=== PATIENT | female | born 1930 | race Caucasian/White ===

== ENCOUNTER 2016-12-11 09:24 | Emergency (ER) | payer MEDICARE, OTHER ==
[2016-12-11] MEDS ORDERED: ASPIRIN 81 MG TABLET, CHEWABLE PO ONE (09:46)
[2016-12-11 10:13] LABS: ABSOLUTE LYMPHOCYTES (AUTO) 0.7 10^3/uL (0.5-4.7); ABSOLUTE MONOCYTES (AUTO) 0.7 10^3/uL (0.1-1.4); ABSOLUTE NEUT (AUTO) 5.7 10^3/uL (1.7-8.2); BASOPHILS % (AUTO) 0.7 % (0-2); EOSINOPHILS % (AUTO) 0.5 % (0-6); HEMATOCRIT 29.9 % (36.0-47.0); HEMOGLOBIN 9.9 g/dL (12.0-15.5); HGB HCT DIFFERENCE -0.2; LYMPHOCYTES % (AUTO) 10.1 % (13-45); MEAN CORPUSCULAR HEMOGLOBIN 33.9 pg (27.0-33.4); MEAN CORPUSCULAR VOLUME 103 fl (80-97); MONOCYTES % (AUTO) 9.7 % (3-13); RED BLOOD COUNT 2.91 10^6/uL (3.72-5.28); RED CELL DISTRIBUTION WIDTH 13.5 % (11.5-14.0); WHITE BLOOD COUNT 7.2 10^3/uL (4.0-10.5)
[2016-12-11 10:30] LABS: ALANINE AMINOTRANSFERASE 119 U/L (9-52); ALBUMIN 3.3 g/dL (3.5-5.0); ALKALINE PHOSPHATASE 97 U/L (38-126); ANION GAP 8 (5-19); ASPARTATE AMINO TRANSFERASE 91 U/L (14-36); BILIRUBIN,DIRECT 0.1 mg/dL (0.0-0.4); BILIRUBIN,TOTAL 0.6 mg/dL (0.2-1.3); BLOOD UREA NITROGEN 32 mg/dL (7-20); CALCIUM 8.2 mg/dL (8.4-10.2); CARBON DIOXIDE 31 mmol/L (22-30); CHLORIDE 103 mmol/L (98-107); CREATINE KINASE 28 U/L (30-135); CREATININE RESULT 0.96 mg/dL (0.52-1.25); GLUCOSE 142 mg/dL (75-110); POTASSIUM 4.5 mmol/L (3.6-5.0); SODIUM 142.2 mmol/L (137-145); TOTAL PROTEIN 6.1 g/dL (6.3-8.2)
[2016-12-11 10:42] LABS: TROPONIN I < 0.012 ng/mL
--- NOTE | 2016-12-11 12:17 | ER Document Report ---
ED General - General Chief Complaint: Chest Pain > 30 Stated Complaint: CHEST PAIN Mode of Arrival: Medic Information source: Patient Notes: 86-year-old female history of pacemaker presents with complaints of left-sided pain chest wall with movement. Patient notes that she thought her pacemaker had moved. Patient denies any shortness of breath radiation of pain neck pain control pain or diaphoresis patient notes pain started last night only occurs with movement - HPI Onset: Yesterday Onset/Duration: Sudden Quality of pain: Achy Severity: Mild Pain Level: 1 Associated symptoms: Body/muscle aches Exacerbated by: Movement Relieved by: Denies Similar symptoms previously: No Recently seen / treated by doctor: No - Related Data Allergies/Adverse Reactions: lactose Adverse Reaction (Verified 12/11/16 10:19) Past Medical History - Social History Smoking Status: Never Smoker Cigarette use (# per day): No Chew tobacco use (# tins/day): No Smoking Education Provided: No Family History: Reviewed & Not Pertinent - Past Medical History Cardiac Medical History: Reports: Hx Hypertension Pulmonary Medical History: Reports: Hx COPD Endocrine Medical History: Reports: Hx Diabetes Mellitus Type 2 GI Medical History: Reports: Hx Gastroesophageal Reflux Disease Past Surgical History: Reports: Hx Cardiac Surgery - pacemaker Review of Systems - Review of Systems Notes: REVIEW OF SYSTEMS: CONSTITUTIONAL : Denies fever, chills, or sweats. Denies recent illness. EENT: Denies eye, ear, throat, or mouth pain or symptoms. Denies nasal or sinus congestion or discharge. Denies throat, tongue, or mouth swelling or difficulty swallowing. CARDIOVASCULAR: Admits to chest wall pain RESPIRATORY: Denies cough, cold, or chest congestion. Denies shortness of breath, difficulty breathing, or wheezing. GASTROINTESTINAL: Denies abdominal pain or distention. Denies nausea, vomiting , or diarrhea. Denies blood in vomitus, stools, or per rectum. Denies black, tarry stools. Denies constipation. GENITOURINARY: Denies difficulty urinating, painful urination, burning, frequency, blood in urine, or discharge. FEMALE GENITOURINARY: Denies vaginal bleeding, heavy or abnormal periods, irregular periods. Denies vaginal discharge or odor. MUSCULOSKELETAL: Denies back or neck pain or stiffness. Denies joint pain or swelling. SKIN: Denies rash, lesions or sores. HEMATOLOGIC : Denies easy bruising or bleeding. LYMPHATIC: Denies swollen, enlarged glands. NEUROLOGICAL: Denies confusion or altered mental status. Denies passing out or loss of consciousness. Denies dizziness or lightheadedness. Denies headache. Denies weakness or paralysis or loss of use of either side. Denies problems with gait or speech. Denies sensory loss, numbness, or tingling. Denies seizures. PSYCHIATRIC: Denies anxiety or stress. Denies depression, suicidal ideation, or homicidal ideation. ALL OTHER SYSTEMS REVIEWED AND NEGATIVE. Dictation was performed using [employer] voice recognition software PHYSICAL EXAMINATION: GENERAL: Well-appearing, well-nourished and in no acute distress. HEAD: Atraumatic, normocephalic. EYES: Pupils equal round and reactive to light, extraocular movements intact, conjunctiva are normal. ENT: Nares patent, oropharynx clear without exudates. Moist mucous membranes. NECK: Normal range of motion, supple without lymphadenopathy LUNGS: Breath sounds clear to auscultation bilaterally and equal. No wheezes rales or rhonchi. HEART: Regular rate and rhythm without murmurs ABDOMEN: Soft, nontender, nondistended abdomen. No guarding, no rebound. No masses appreciated. Female : deferred Musculoskeletal: Normal range of motion, no pitting or edema. No cyanosis. Admits to left chest wall tenderness on palpation of pacer NEUROLOGICAL: Cranial nerves grossly intact. Normal speech, normal gait. Normal sensory, motor exams PSYCH: Normal mood, normal affect. SKIN: Warm, Dry, normal turgor, no rashes or lesions noted. Physical Exam - Vital signs Vitals: Resp Pulse Ox 22 H 98 12/11/16 09:48 12/11/16 09:48 Course - Re-evaluation Re-evalutation: 12/11/16 12:16 Physical examination reproduces the patient's pain, lab work imaging note no significant abnormality otherwise. I have very low suspicion for cardiac event , however since she is elderly I did perform cardiac enzymes. I would expect his enzymes to be elevated since pain started yesterday and has been over 16 hours at this point Patient instructed to follow-up with her patch finisher tomorrow After performing a Medical Screening Examination, I estimate there is LOW risk for RUPTURED ESOPHAGUS, PNEUMOTHORAX, PULMONARY EMBOLISM, ACUTE CORONARY SYNDROME, OR THORACIC AORTIC DISSECTION, thus I consider the discharge disposition reasonable. The patient and I have discussed the diagnosis and risks , and we agree with discharging home with close follow-up. We also discussed returning to the Emergency Department immediately if new or worsening symptoms occur. We have discussed the symptoms which are most concerning (e.g., bloody sputum, worsening pain or shortness of breath) that necessitate immediate return. - Vital Signs Vital signs: Temp Pulse Resp BP Pulse Ox 98.0 F 68 11 L 142/50 H 99 12/11/16 09:50 12/11/16 09:50 12/11/16 12:01 12/11/16 12:01 12/11/16 12:01 - Laboratory Result Diagrams: 12/11/16 10:00 12/11/16 10:00 Laboratory results interpreted by me: 12/11/16 12/11/16 10:00 10:00 RBC 2.91 L Hgb 9.9 L Hct 29.9 L MCV 103 H MCH 33.9 H Plt Count 103 L Seg Neutrophils % 79.0 H Lymphocytes % 10.1 L Carbon Dioxide 31 H BUN 32 H Est GFR (Non-Af Amer) 55 L Glucose 142 H Calcium 8.2 L AST 91 H ALT 119 H Creatine Kinase 28 L Total Protein 6.1 L Albumin 3.3 L - Diagnostic Test Radiology reviewed: Image reviewed, Reports reviewed - EKG Interpretation by Me EKG shows normal: Sinus rhythm, [place], Intervals, QRS Complexes Discharge - Discharge Clinical Impression: Chest wall pain Condition: Stable Disposition: HOME, SELF-CARE Instructions: Chest Wall Pain ([facility]) Additional Instructions: Please follow-up with her patch finisher tomorrow for reevaluation or return immediately if any other concerns
[2016-12-11 12:52] VITALS: BP 145/53
--- NOTE | 2016-12-11 13:42 | EKG REPORT ---
SEVERITY:- ABNORMAL ECG - ATRIAL-VENTRICULAR DUAL-PACED COMPLEXES : Confirmed by: Michael Dueñas MD 11-Dec-2016 13:41:32
== END 2016-12-11 12:52 | disposition home or self-care (01) ==
LOC: ER 09:24
DX: R07.89 Other chest pain (principal); Z95.1 Presence of aortocoronary bypass graft; I10 Essential (primary) hypertension; J44.9 Chronic obstructive pulmonary disease, unspecified; E11.9 Type 2 diabetes mellitus without complications
CPT/HCPCS: 36415; 71010; 80053; 82550; 82553; 84484; 85025; 93005; 93010; 99285

== ENCOUNTER → 2017-03-27 | Outpatient (CLI) | payer MEDICARE, OTHER ==
[2017-03-27 08:35] LABS: ALANINE AMINOTRANSFERASE 31 U/L (9-52); ALBUMIN 4.1 g/dL (3.5-5.0); ALKALINE PHOSPHATASE 89 U/L (38-126); ANION GAP 10 (5-19); ASPARTATE AMINO TRANSFERASE 31 U/L (14-36); BILIRUBIN,DIRECT 0.2 mg/dL (0.0-0.4); BILIRUBIN,TOTAL 0.5 mg/dL (0.2-1.3); BLOOD UREA NITROGEN 46 mg/dL (7-20); CALCIUM 9.5 mg/dL (8.4-10.2); CARBON DIOXIDE 31 mmol/L (22-30); CHLORIDE 103 mmol/L (98-107); CREATININE RESULT 1.27 mg/dL (0.52-1.25); GLUCOSE 72 mg/dL (75-110); PHOSPHORUS 5.4 mg/dL (2.5-4.5); POTASSIUM 5.3 mmol/L (3.6-5.0); SODIUM 143.5 mmol/L (137-145); TOTAL PROTEIN 7.2 g/dL (6.3-8.2)
[2017-03-28 07:06] LABS: PTH INTACT 47 pg/mL (15-65)
[2017-03-28 15:14] LABS: VITAMIN D 1,25 DIHYDROXY 27.3 pg/mL (19.9-79.3)
[2017-04-03 07:27] LABS: PTH RELATED PEPTIDE <1.1 pmol/L (.)
== END ==
LOC: OD 07:30
PROVIDERS: ATTEND Internal Medicine Endocrinology, Diabetes & Metabolism
DX: E83.52 Hypercalcemia (principal)
CPT/HCPCS: 36415; 80053; 82397; 82652; 83970; 84100

== ENCOUNTER 2018-01-09 13:48 | Emergency (ER) | payer MEDICARE, OTHER ==
--- NOTE | 2018-01-09 14:35 | ER Document Report ---
ED General <AZUCENANICOLAS Bhatia - Last Filed: 01/09/18 16:34> - General Mode of Arrival: Ambulatory Information source: Patient TRAVEL OUTSIDE OF THE [place] IN LAST 30 DAYS: No <KRYSTYNA LIMON - Last Filed: 01/09/18 16:38> - General Chief Complaint: Anxiety Stated Complaint: DIFFICULTY BREATHING Time Seen by Provider: 01/09/18 14:22 Notes: 87 y.o female with a PMHx of Alzheimer's, one stent, 4 vessel bypass surgery, HTN and pacemaker placement presents to the ED with trouble breathing of onset a few nights ago. She reports that she has trouble breathing from time to time and at baseline she uses nebulizers and breathing treatments as well as oxygen during the night. Pt reports that recently she has been using her oxygen during the day as well and has felt some relief. Family confirmed the oxygen was started a while back most likely due to anxiety and has been using it more the past few days with some relief. Son at bedside states that she might be having issues with allergies. He reports that she had a CXR 2 weeks ago and started taking Lasix. PCP at the [facility] in [place], [place]. (KRYSTYNA LIMON) - Related Data Allergies/Adverse Reactions: lactose Adverse Reaction (Verified 12/11/16 10:19) Past Medical History - General Information source: Patient, Relative - Son at bedside - Social History Smoking Status: Unknown if Ever Smoked Cigarette use (# per day): No Chew tobacco use (# tins/day): No Smoking Education Provided: No Frequency of alcohol use: None Drug Abuse: None Family History: Reviewed & Not Pertinent - Past Medical History Cardiac Medical History: Reports: Hx Coronary Artery Disease - 4 vessel bypass surgery, Hx Hypertension, Other - pacemaker in place Pulmonary Medical History: Reports: Hx COPD Endocrine Medical History: Reports: Hx Diabetes Mellitus Type 2 GI Medical History: Reports: Hx Gastroesophageal Reflux Disease Past Surgical History: Reports: Hx Cardiac Surgery - pacemaker <KRYSTYNA LIMON - Last Filed: 01/09/18 16:38> Review of Systems - Review of Systems Constitutional: No symptoms reported EENT: No symptoms reported Cardiovascular: No symptoms reported Respiratory: See HPI, Short of breath - trouble breathing Gastrointestinal: No symptoms reported Genitourinary: No symptoms reported Female Genitourinary: No symptoms reported Musculoskeletal: No symptoms reported Skin: No symptoms reported Hematologic/Lymphatic: No symptoms reported Neurological/Psychological: No symptoms reported -: Yes All other systems reviewed and negative <KRYSTYNA LIMON - Last Filed: 01/09/18 16:38> Physical Exam <NICOLAS ZENG - Last Filed: 01/09/18 16:34> <KRYSTYNA LIMON - Last Filed: 01/09/18 16:38> - Vital signs Vitals: Temp Pulse Resp BP Pulse Ox 97.9 F 62 18 146/56 H 96 01/09/18 13:51 01/09/18 13:51 01/09/18 13:51 01/09/18 13:51 01/09/18 13:51 - Notes Notes: General: Alert, appears well and reasonably oriented. Pt was sleeping when entering the room. Diagnosed with Alzheimer's but seems to be very mild. HEENT: Normocephalic. Atraumatic. PERRL. Extraocular movements intact. Oropharynx clear. Neck: Supple. Non-tender. Respiratory: No respiratory distress. Clear and equal breath sounds bilaterally. Pt does not appear to be SOB. Pulse Ox on room air was at 99% when we entered the room and she was sleeping, after talking with patient the pulse ox read at 96%. Cardiovascular: Regular rate and rhythm. Abdominal: Normal Inspection. Non-tender. No distension. Normal Bowel Sounds. Back: Non-tender. No deformity or step off. Extremities: Moves all four extremities. Upper extremities: Normal inspection. Normal ROM. Lower extremities: LLE surgical scar from bypass surgery. RLE normal inspection. No edema. Normal ROM. Neurological: Normal cognition. AAOx4. Normal speech. Psychological: Normal affect. Normal Mood. Skin: Warm. Dry. Surgical scar to LLE, medially from ankle to groin where veins were removed for 4 vessel bypass. (KRYSTYNA LIMON) Course - Laboratory Result Diagrams: 01/09/18 15:15 01/09/18 15:15 - Diagnostic Test Radiology reviewed: Image reviewed, Reports reviewed - Chest x-ray shows stable chronic changes including a left diaphragm elevation and heart borders at upper limits of normal. This chest x-ray is compared to the one done on 12/22/2017 and [place], and it is unchanged. - EKG Interpretation by Me Rate: Normal - 60 Rhythm: Other - AV dual paced rhythm When compared to previous EKG there are: Previous EKG unavailable <NICOLAS ZENG - Last Filed: 01/09/18 16:34> - Laboratory Result Diagrams: 01/09/18 15:15 01/09/18 15:15 <KRYSTYNA LIMON - Last Filed: 01/09/18 16:38> - Re-evaluation Re-evalutation: 01/09/18 16:24 The patient's BNP is 801, there are no previous BNPs for comparison on her other lab testing. At this time her pulse ox is 96% on room air. She is not tachypneic. Chest x-ray does not show any acute process specifically no pulmonary edema or congestive heart failure. The son reports that the patient does have anxiety medication for as needed basis but apparently has not been receiving that for the symptoms. Her symptoms have been progressing since she entered this rest home. The patient thinks it is due to allergies related to all the spraying that is done around the facility, however she does have some Alzheimer's dementia. The son is agreeable to having them try her anxiety medication when she is feeling shortness of breath see if that helps. (NICOLAS ZENG) 01/09/18 14:52 I had radiologist pull up film of CXR taken on December 22 that did not show any acute abnormalities of CHF or pulmonary edema. Pt was started on 40mg Lasix and potassium supplements. (KRYSTYNA LIMON) - Vital Signs Vital signs: Temp Pulse Resp BP Pulse Ox 97.9 F 62 18 146/56 H 96 01/09/18 13:51 01/09/18 13:51 01/09/18 13:51 01/09/18 13:51 01/09/18 13:51 - Laboratory Laboratory results interpreted by me: 01/09/18 01/09/18 01/09/18 15:15 15:15 15:15 RBC 3.71 L Hgb 11.9 L Plt Count 82 L Potassium 5.9 H Carbon Dioxide 34 H BUN 33 H Est GFR ( Amer) 52 L Est GFR (Non-Af Amer) 43 L Glucose 134 H NT-Pro-B Natriuret Pep 801 H Discharge <NICOLAS ZENG - Last Filed: 04/20/18 16:34> <KRYSTYNA LIMON - Last Filed: 01/09/18 16:38> - Discharge Clinical Impression: Shortness of breath at rest Condition: Stable Disposition: HOME, SELF-CARE Additional Instructions: Dyspnea, Nonspecific You were evaluated for shortness of breath, or dyspnea. Dyspnea has many causes, and some are more serious than others. Sometimes it's impossible to diagnose the cause of dyspnea with the tests that are available on an emergency basis. Based on our evaluation today, you do not need hospitalization now. We found no evidence of pneumonia, collapsed lung, blood clots in the lung, tumors , or heart failure. Causes of non-specific dyspnea can include asthma or bronchospasm, hyperventilation, emotional distress, heart disease, emphysema, fibrosis of the lung, and stiffness of the chest wall. In healthy individuals with a single episode, it's sometimes reasonable to do nothing but wait to see if the problem occurs again. Additional tests used to evaluate dyspnea can include cardiac stress testing, echocardiography, pulmonary function testing, CAT scan of the chest, bronchoscopy or pulmonary biopsy. Return if shortness of breath persists or worsens, or if you develop chest pain, fever, cough, confusion, or fainting. At this time your oxygen saturations are normal. Your chest x-ray does not show any fluid on the lungs or heart enlargement. Your lab work suggest you might be a little dehydrated. For now you should use supplemental oxygen if you feel you need to. Call your doctor to follow-up at the first of the week for reevaluation. Take copies of the lab work and chest x-ray with you when you go to see your doctor. RETURN TO THE EMERGENCY ROOM IF ANY NEW OR WORSENING SYMPTOMS. Referrals: MARY AYALA MD [Primary Care Provider] - Follow up as needed Scribe Attestation: 01/09/18 15:22 I personally performed the services described in the documentation, reviewed and edited the documentation which was dictated to the scribe in my presence, and it accurately records my words and actions. (NICOLAS ZENG) Scribe Documentation - Scribe Written by Randi:: Randi Zee 01/09/2018 1549 acting as scribe for :: Azucena <KRYSTYNA LIMON - Last Filed: 01/09/18 16:38>
[2018-01-09 15:39] LABS: ABSOLUTE EOSINOPHILS # (AUTO) 0.2 10^3/uL (0.0-0.6); ABSOLUTE LYMPHOCYTES (AUTO) 1.5 10^3/uL (0.5-4.7); ABSOLUTE MONOCYTES (AUTO) 0.6 10^3/uL (0.1-1.4); ABSOLUTE NEUT (AUTO) 3.3 10^3/uL (1.7-8.2); BASOPHILS % (AUTO) 0.8 % (0-2); EOSINOPHILS % (AUTO) 2.8 % (0-6); HEMOGLOBIN 11.9 g/dL (12.0-15.5); LYMPHOCYTES % (AUTO) 26.3 % (13-45); MEAN CORPUSCULAR HEMOGLOBIN 32.1 pg (27.0-33.4); MEAN CORPUSCULAR HGB CONC 33.1 g/dL (32.0-36.0); MEAN CORPUSCULAR VOLUME 97 fl (80-97); RED BLOOD COUNT 3.71 10^6/uL (3.72-5.28); RED CELL DISTRIBUTION WIDTH 12.9 % (11.5-14.0); SEGMENTED NEUTROPHILS % (AUTO) 59.1 % (42-78); TOTAL CELLS COUNTED % (AUTO) 100 %; WHITE BLOOD COUNT 5.6 10^3/uL (4.0-10.5)
--- NOTE | 2018-01-09 15:44 | RADIOLOGY REPORT (SQ) ---
EXAM DESCRIPTION: CHEST SINGLE VIEW COMPLETED DATE/TIME: 01/09/2018 3:32 pm REASON FOR STUDY: SOB COMPARISON: Chest x-ray from [facility] dated 12/22/2017. Prior chest x-ray from [facility] dated 12/11/2016. EXAM PARAMETERS: NUMBER OF VIEWS: One view. TECHNIQUE: Single frontal radiographic view of the chest acquired. RADIATION DOSE: NA LIMITATIONS: None. FINDINGS: LUNGS AND PLEURA: Chronic elevation of the left hemidiaphragm. A few calcified granuloma. No opacities, masses or pneumothorax. No pleural effusion. MEDIASTINUM AND HILAR STRUCTURES: No masses. Contour normal. HEART AND VASCULAR STRUCTURES: Heart upper limits of normal in size. Normal vasculature. BONES: No acute findings. HARDWARE: Sternotomy wires and pacemaker. OTHER: No other significant finding. IMPRESSION: STABLE CHRONIC CHANGES INCLUDING ELEVATION OF THE LEFT HEMIDIAPHRAGM AND BORDERLINE CARD IOMEGALY. NO CHANGE FROM PRIOR STUDIES. NO ACUTE RADIOGRAPHIC FINDING IN THE CHEST. COMMENT: The patient's prior chest x-ray done at [facility], dated 12/22/2017, also s howed the same above findings, chronic and stable, with no acute findings at that time. TECHNICAL DOCUMENTATION: JOB ID: [id number] [employer]- All Rights Reserved Reading location - IP/workstation name: [email or web address]
[2018-01-09 15:48] LABS: ALANINE AMINOTRANSFERASE 27 U/L (9-52); ALBUMIN 3.8 g/dL (3.5-5.0); ALKALINE PHOSPHATASE 66 U/L (38-126); ANION GAP 11 (5-19); ASPARTATE AMINO TRANSFERASE 24 U/L (14-36); BILIRUBIN,DIRECT 0.2 mg/dL (0.0-0.4); BILIRUBIN,TOTAL 0.3 mg/dL (0.2-1.3); BLOOD UREA NITROGEN 33 mg/dL (7-20); CALCIUM 9.1 mg/dL (8.4-10.2); CARBON DIOXIDE 34 mmol/L (22-30); CHLORIDE 98 mmol/L (98-107); CREATINE KINASE 33 U/L (30-135); GLUCOSE 134 mg/dL (75-110); POTASSIUM 5.9 mmol/L (3.6-5.0); SODIUM 142.7 mmol/L (137-145); TOTAL PROTEIN 6.5 g/dL (6.3-8.2)
[2018-01-09 15:53] LABS: PLATELET COUNT 82 10^3/uL (150-450)
[2018-01-09 16:00] LABS: NT PRO BNP 801 pg/mL (<450)
[2018-01-09 16:04] LABS: TROPONIN I < 0.012 ng/mL
[2018-01-09 17:19] VITALS: BP 154/71
--- NOTE | 2018-01-09 21:15 | EKG REPORT ---
SEVERITY:- ABNORMAL ECG - ATRIAL-VENTRICULAR DUAL-PACED RHYTHM : Confirmed by: Jaspal Key 09-Jan-2018 21:14:25
== END 2018-01-09 16:51 | disposition home or self-care (01) ==
LOC: ER 13:48
DX: R06.00 Dyspnea, unspecified (principal); F41.9 Anxiety disorder, unspecified; I10 Essential (primary) hypertension; E11.9 Type 2 diabetes mellitus without complications; G30.9 Alzheimer's disease, unspecified; F02.80 Dementia in other diseases classified elsewhere, unspecified severity, without behavioral disturbance, psychotic disturbance, mood disturbance, and anxiety; Z95.1 Presence of aortocoronary bypass graft; Z95.0 Presence of cardiac pacemaker
CPT/HCPCS: 36415; 71045; 80053; 82550; 83880; 84484; 85025; 93005; 93010; 99284

== ENCOUNTER → 2018-06-16 | Outpatient (CLI) | payer MEDICARE, OTHER ==
[2018-06-16 09:04] LABS: HEMATOCRIT 35.3 % (36.0-47.0); HEMOGLOBIN 11.8 g/dL (12.0-15.5); MEAN CORPUSCULAR HEMOGLOBIN 33.2 pg (27.0-33.4); MEAN CORPUSCULAR HGB CONC 33.5 g/dL (32.0-36.0); MEAN CORPUSCULAR VOLUME 99 fl (80-97); PLATELET COUNT 147 10^3/uL (150-450); RED BLOOD COUNT 3.56 10^6/uL (3.72-5.28); RED CELL DISTRIBUTION WIDTH 12.2 % (11.5-14.0); WHITE BLOOD COUNT 8.1 10^3/uL (4.0-10.5)
[2018-06-16 09:28] LABS: ALANINE AMINOTRANSFERASE 25 U/L (9-52); ALBUMIN 3.8 g/dL (3.5-5.0); ALKALINE PHOSPHATASE 75 U/L (38-126); ANION GAP 7 (5-19); ASPARTATE AMINO TRANSFERASE 22 U/L (14-36); BILIRUBIN,DIRECT 0.5 mg/dL (0.0-0.4); BILIRUBIN,TOTAL 0.6 mg/dL (0.2-1.3); BLOOD UREA NITROGEN 22 mg/dL (7-20); CALCIUM 9.3 mg/dL (8.4-10.2); CARBON DIOXIDE 34 mmol/L (22-30); CHLORIDE 96 mmol/L (98-107); CHOLESTEROL 146.07 mg/dL (0-200); GLUCOSE 147 mg/dL (75-110); POTASSIUM 4.3 mmol/L (3.6-5.0); SODIUM 137.4 mmol/L (137-145); TOTAL PROTEIN 6.8 g/dL (6.3-8.2); TRIGLYCERIDES 191 mg/dL (<150)
[2018-06-16 09:40] LABS: DIRECT LDL 63 mg/dL (<100)
[2018-06-16 09:44] LABS: FREE T4 (FREE THYROXINE) 1.63 ng/dL (0.78-2.19); VLDL CHOLESTEROL 38.2 mg/dL (10-31)
[2018-06-16 09:58] LABS: THYROID STIMULATING HORMONE 0.45 uIU/mL (0.47-4.68)
== END ==
LOC: OD 08:33
PROVIDERS: ATTEND Internal Medicine
DX: E78.5 Hyperlipidemia, unspecified (principal); I10 Essential (primary) hypertension; I25.10 Atherosclerotic heart disease of native coronary artery without angina pectoris; D69.6 Thrombocytopenia, unspecified
CPT/HCPCS: 36415; 80053; 80061; 82306; 84439; 84443; 85027

== ENCOUNTER → 2019-03-12 | Outpatient (CLI) | payer MEDICARE, OTHER ==
[2019-03-12 09:38] LABS: ALANINE AMINOTRANSFERASE 28 U/L (9-52); ALBUMIN 4.1 g/dL (3.5-5.0); ALKALINE PHOSPHATASE 62 U/L (38-126); ANION GAP 9 (5-19); ASPARTATE AMINO TRANSFERASE 35 U/L (14-36); BILIRUBIN,DIRECT 0.3 mg/dL (0.0-0.4); BILIRUBIN,TOTAL 0.6 mg/dL (0.2-1.3); BLOOD UREA NITROGEN 27 mg/dL (7-20); CALCIUM 8.7 mg/dL (8.4-10.2); CARBON DIOXIDE 31 mmol/L (22-30); CHLORIDE 100 mmol/L (98-107); GLUCOSE 92 mg/dL (75-110); POTASSIUM 4.4 mmol/L (3.6-5.0); SODIUM 140.1 mmol/L (137-145); TOTAL PROTEIN 7.1 g/dL (6.3-8.2); TRIGLYCERIDES 246 mg/dL (<150)
[2019-03-12 09:49] LABS: DIRECT LDL 218 mg/dL (<100)
[2019-03-12 09:53] LABS: CHOLESTEROL 369.55 mg/dL (0-200); VLDL CHOLESTEROL 49.2 mg/dL (10-31)
== END ==
LOC: OD 07:20
PROVIDERS: ATTEND Internal Medicine
DX: E11.9 Type 2 diabetes mellitus without complications (principal); E78.5 Hyperlipidemia, unspecified; I10 Essential (primary) hypertension
CPT/HCPCS: 36415; 80053; 80061; 83036